=== PATIENT | male | born 1970 | race Caucasian/White ===

== ENCOUNTER 2019-12-08 13:03 | Emergency (ER) | payer SELFPAY ==
[2019-12-08 13:12] VITALS: BP 151/93; PULSE 100; RESP 16; TEMP 36.8; O2SAT 94; BMI 27.1
[2019-12-08 13:37] VITALS: BP 151/93; PULSE 100; RESP 16; TEMP 36.8; O2SAT 94; BMI 27.1
--- NOTE | 2019-12-08 13:51 | HMH.EDUTC ---
[facility] [place] Clinical Impression: Contact dermatitis and eczema Disposition: Home, Self-Care Condition on Discharge: Good Instructions: DI for Contact Dermatitis Additional Instructions: Avoid contact with the offending substance if you could identify it. Keep taking the oral benedryl as you have been. Don't start the oral steroids (dexmethazone pack) until tomorrow. Don't put the topical steroids (triamcinolone) on your face or your groin. Follow up with your regular doctor or here in a couple of days if you are not getting better. GO TO THE ER FOR ANY WORSENING SYMPTOMS OR CONCERNS Prescriptions: Permethrin [Elimite] 1 applicatio TP ONCE #1 bottle Transmission Status: Received by [facility] [id number] cephALEXin [Keflex 500mg Cap] 500 mg PO Q6H 10 Days #40 cap Transmission Status: Received by [facility] [id number] Famotidine [Pepcid 20mg Tablet] 20 mg PO BID 14 Days #28 tab Transmission Status: Received by [facility] [id number] predniSONE [Prednisone 20mg Tab] 20 mg PO BID 5 Days #10 tab Transmission Status: Received by [facility] [id number] Triamcinolone Acetonide 1 applicatio TP TIDP PRN 7 Days #1 tube PRN Reason: Itching Transmission Status: Received by [facility] # [id number] Referrals: Provider,Referral, MD [Primary Care Provider] - Time of Disposition: 14:03 Medical Decision Making - Medical Records Medical records reviewed: Yes: I reviewed the patient's medical records. - Rene Inquiry Pt receiving controlled substance: No Vital Signs: 12/08/19 13:12 12/08/19 13:37 12/08/19 14:13 Temperature 98.2 F 98.2 F 98.2 F Temperature Source Oral Oral Pulse Rate 100 H Pulse Rate [Right Brachial] 100 H 100 H Respiratory Rate 16 16 16 Blood Pressure 151/93 H Blood Pressure [Right Arm] 151/93 H 151/93 H Blood Pressure Mean [Right Arm] 112 112 Blood Pressure Source [Right Arm] Automatic Cuff Automatic Cuff Blood Pressure Position [Right Arm] Sitting Sitting 02 Sat by Pulse Oximetry 94 L 94 L Oxygen Delivery Method Room Air Room Air - Lab Data Lab Results 12/08/19 13:43: Strep Scn Rapid Clinic Negative Orders (Tests/Meds): ED MEDICATIONS Discontinued Medications Generic Name Dose Route Start Last Admin Trade Name Garrison PRN Reason Stop Dose Admin Methylprednisolone Sodium Succinate 125 mg 12/08/19 13:53 12/08/19 14:08 Solu-Medrol 125mg/2ml Vial IM 12/08/19 13:54 125 mg ONCE ONE Administration ORDERS Category Date Time Status Strep Screen Confirmation Stat Micro 12/08/19 13:43 [place] [facility] [place] - General Stated complaint: rash Time Seen by Provider: 12/08/19 13:20 Mode of Arrival: Ambulatory Source of Information: Patient Limitations: No Limitations Description of Symptoms (Recalled from Triage Doc. by RN): PATIENT C/O RASH TO BILATERAL FOREARMS, WRIST, ANKLES, AND AROUND WAIST HEENT Symptoms (Recalled from RN notes): No Resp Symptoms (Recalled from RN notes): No Skin Symptoms (Recalled from RN notes): Yes MS Symptoms (Recalled from RN notes): No Functional Status (Recalled from RN notes): WNL - History of Present Illness Provider Complaint: He c/o having a itchy rash on his body for the past 1 month. He has taken benedryl and had no relief. - Related Data Previous Rx's Medication Instructions Recorded Famotidine [Pepcid 20mg Tablet] 20 mg PO BID 14 Days #28 tab 12/08/19 Permethrin [Elimite] 1 applicatio TP ONCE #1 bottle 12/08/19 Triamcinolone Acetonide 1 applicatio TP TIDP PRN 7 Days #1 12/08/19 tube cephALEXin [Keflex 500mg Cap] 500 mg PO Q6H 10 Days #40 cap 12/08/19 predniSONE [Prednisone 20mg 20 mg PO BID 5 Days #10 tab 12/08/19 Tab] Allergies Allergy/AdvReac Type Severity Reaction Status Date / Time No Known Allergies Allergy Verified 12/08/19 13:40 - Worker's Comp Is this a Worker's Comp case?: No [facility] History - Hepatitis A Screen Drug use history?: No High risk sexual b
[2019-12-08 14:06] LABS: UTC Strep Screen (Rapid) Negative (Negative)
[2019-12-08 14:13] VITALS: BP 151/93; PULSE 100; RESP 16; TEMP 36.8; O2SAT 94
== END 2019-12-08 14:20 | disposition home or self-care (01) ==
LOC: ER 13:13 → UTC 13:15 → ER 13:15 → UTC 13:25
PROVIDERS: Emergency Provider Nurse Practitioner Family
DX: L25.9 Unspecified contact dermatitis, unspecified cause (principal); F17.210 Nicotine dependence, cigarettes, uncomplicated; Z90.09 Acquired absence of other part of head and neck
CPT/HCPCS: 87880; 96372; 99202

== ENCOUNTER 2021-03-19 12:36 | Emergency (ER) | payer SELFPAY ==
[2021-03-19 12:40] VITALS: BP 140/94; PULSE 104; RESP 20; TEMP 36.8; O2SAT 96; BMI 22.6
[2021-03-19 13:20] LABS: UTC Strep Screen (Rapid) Negative (Negative)
--- NOTE | 2021-03-19 13:33 | HMH.EDUTC ---
[facility] [place] Clinical Impression: Viral syndrome Sinusitis Qualifiers: Sinusitis location: unspecified location Chronicity: acute Recurrence: non-recurrent Qualified Code(s): J01.90 - Acute sinusitis, unspecified Disposition: Home, Self-Care Condition on Discharge: Good Instructions: DI for Sinusitis, Preventing the Spread of Coronavirus Discharge Instructions Additional Instructions: Drink plenty of fluids. Take tylenol or ibuprofen for pain or fever. Take the medications as directed. Follow up with your regular doctor. GO TO THE ER FOR ANY WORSENING SYMPTOMS Prescriptions: Albuterol Sulfate [Albuterol 0.083% 2.5mg/3mL neb] 2.5 mg IH Q6HP PRN #90 neb PRN Reason: Shortness Of Breath Transmission Status: Pending to [facility]/pharmacy #[id number] Albuterol Sulfate [Albuterol Sulfate Hfa] 2 puffs IH Q6HP PRN 30 Days #1 hfa.aer.ad PRN Reason: Shortness Of Breath Transmission Status: Pending to [facility]/pharmacy #[id number] guaiFENesin [Mucinex 600mg tablet] 1 - 2 tab PO BIDP PRN #30 tab.er.12h PRN Reason: Congestion Transmission Status: Received by [facility]/pharmacy #[id number] Promethazine HCl [Phenergan 25mg tab] 25 mg PO Q6H PRN #20 tab PRN Reason: Nausea And Vomiting Transmission Status: Received by [id number] Azithromycin [Z-Elian 250mg Tab*] 250 mg PO UD DOSE PK #6 tab Transmission Status: Received by [facility]/pharmacy #[id number] Referrals: Provider,Referral, [Primary Care Provider] - Forms: Work/School Release Time of Disposition: 13:57 Medical Decision Making - Medical Records Medical records reviewed: No: I reviewed the patient's medical records. - Rene Inquiry Pt receiving controlled substance: No Vital Signs: 03/19/21 12:40 03/19/21 13:54 Temperature 98.3 F 98.3 F Temperature Source Oral Pulse Rate 104 H Pulse Rate [Right Brachial] 104 H Respiratory Rate 20 20 Blood Pressure 140/94 H Blood Pressure [Right Arm] 140/94 H Blood Pressure Mean [Right Arm] 109 Blood Pressure Source [Right Arm] Automatic Cuff Blood Pressure Position [Right Arm] Sitting 02 Sat by Pulse Oximetry 96 Oxygen Delivery Method Room Air - Lab Data Lab results reviewed: Yes: I reviewed the patient's lab results. Lab Results 03/19/21 13:01: Strep Scn Rapid Clinic Negative Orders (Tests/Meds): ORDERS Category Date Time Status Covid-19 Nasal PCR ([facility]) Routine Lab 03/19/21 13:40 Received Strep Screen Confirmation Stat Micro 03/19/21 13:01 Received [facility] UTC HPI - General Stated complaint: congestion, cough, body aches, fever Time Seen by Provider: 03/19/21 12:40 Mode of Arrival: Ambulatory Source of Information: Patient Limitations: No Limitations Description of Symptoms (Recalled from Triage Doc. by RN): PATIENT C/O PRODUCTIVE COUGH, CHILLS/SWEATS, ABDOMINAL PAIN, VOMITING, AND DIARRHEA HEENT Symptoms (Recalled from RN notes): No Resp Symptoms (Recalled from RN notes): Yes Skin Symptoms (Recalled from RN notes): No MS Symptoms (Recalled from RN notes): No Functional Status (Recalled from RN notes): WNL - History of Present Illness Provider Complaint: He states that for the past 2 days he has been getting more congested in his sinuses and chest. He has had lots of post nasal drainage. The drainage has made him nauseated at times. He has vomited multiple times. He has some diarrhea also. He denies any fever/chills/body aches. - Related Data Home Medications Medication Instructions Recorded Confirmed Fexofenadine HCl [Xochilt 180 mg PO DAILY 03/19/21 03/19/21 Allergy] Previous Rx's Medication Instructions Recorded Albuterol Sulfate [Albuterol 2.5 mg IH Q6HP PRN #90 neb 03/19/21 0.083% 2.5mg/3mL neb] Albuterol Sulfate [Albuterol 2 puffs IH Q6HP PRN 30 Days #1 03/19/21 Sulfate Hfa] hfa.aer.ad Azithromycin [Z-Elian 250mg Tab*] 250 mg PO UD DOSE PK #6 tab 03/19/21 Promethazine HCl [Phenergan 25mg 25 mg PO Q6H PRN #20 tab 03/19/21 tab] guaiFENesin [Mucinex
[2021-03-19 13:54] VITALS: BP 140/94; PULSE 104; RESP 20; TEMP 36.8; O2SAT 96
== END 2021-03-19 14:04 | disposition home or self-care (01) ==
PROVIDERS: Emergency Provider Nurse Practitioner Family
DX: J01.90 Acute sinusitis, unspecified (principal); B34.9 Viral infection, unspecified; F17.210 Nicotine dependence, cigarettes, uncomplicated; Z20.822 Contact with and (suspected) exposure to COVID-19
CPT/HCPCS: 87880; 99203; G0463; U0003

== ENCOUNTER 2021-03-22 14:47 | Emergency (ER) | payer SELFPAY ==
[2021-03-22 14:48] VITALS: BP 134/98; PULSE 118; RESP 20; TEMP 36.9; O2SAT 98; BMI 22.5
--- NOTE | 2021-03-22 14:49 | HMH.EDABDPAI ---
ED Disposition Clinical Impression: COPD exacerbation Gastritis due to alcohol without hemorrhage Qualifiers: Chronicity: acute Qualified Code(s): K29.20 - Alcoholic gastritis without bleeding Disposition: Home, Self-Care Condition on Discharge: Fair Instructions: DI for Acute Abdominal Pain Additional Instructions: Avoid drinking alcohol. Stick to a clear liquid diet for the next day or 2. Slowly advance your diet to solids. Return to the emergency department if you feel worse in any way. Follow-up with your primary care physician if you do not feel better within the next 3 to 4 days. Prescriptions: Metoclopramide HCl [Reglan 10mg Tab] 10 mg PO Q6H PRN #20 tab PRN Reason: Vomiting Transmission Status: [id number] Referrals: Provider,Referral, [Primary Care Provider] - - Critical Care Critical Care Time: No Attestation: On , the high probability of a clinically significant, sudden or life threatening deterioration of the following system(s) required my full and direct attention, intervention and personal management. The time I documented below is in addition to time spent performing reported procedures but includes the following listed in this critical care notation. Medical Decision Making - Medical Records Medical records reviewed: Yes: I reviewed the patient's medical records. - Rene Inquiry Pt receiving controlled substance: No Vital Signs: 03/22/21 14:48 03/22/21 15:59 Temperature 98.4 F Temperature Source Oral Pulse Rate 80 Pulse Rate [Radial] 118 H Respiratory Rate 20 Blood Pressure 119/98 H Blood Pressure [Right Arm] 134/98 H Blood Pressure Mean [Right Arm] 110 Blood Pressure Source Automatic Cuff Blood Pressure Position Sitting Blood Pressure Position [Right Arm] Sitting 02 Sat by Pulse Oximetry 98 96 Oxygen Delivery Method Room Air Room Air - Lab Data Lab results reviewed: Yes: I reviewed the patient's lab results. Lab Results 03/22/21 14:57: WBC 12.2 H, RBC 4.82, Hgb 16.2, Hct 47.0, MCV 97.5 H, MCH 33.7 H, MCHC 34.6, RDW 13.3, Plt Count 337, MPV 7.3 L, Neut % (Auto) 68.1, Lymph % (Auto) 20.3, [place] % (Auto) 9.0, Eos % (Auto) 1.9, Baso % (Auto) 0.8, Neut # (Auto) 8.3 H, Lymph # (Auto) 2.5, [place] # (Auto) 1.1 H, Eos # (Auto) 0.2, Baso # (Auto) 0.1 03/22/21 14:57: Sodium 128 L, Potassium 3.5, Chloride 92 L, Carbon Dioxide 27, Anion Gap 12.5, BUN 3 L, Creatinine 0.60 L, Estimated Creat Clear 160, Estimated GFR 144, Est GFR ( Amer) 174, Glucose 148 H, Calcium 9.5, Total Bilirubin 0.7, AST 26, ALT 17, Alkaline Phosphatase 60, Total Protein 7.4, Albumin 4.6, Globulin 2.8, Albumin/Globulin Ratio 1.6, Lipase 72 03/22/21 15:15: Urine Color Yellow, Urine Appearance Clear, Urine pH 6.5, Ur Specific [place] <= 1.005, Urine Protein Negative, Urine Glucose (UA) Negative, Urine Ketones Negative, Urine Blood Negative, Urine Nitrate Negative, Urine Bilirubin Negative, Urine Urobilinogen 1.0, Ur Leukocyte Esterase Negative, Urine RBC None, Urine WBC None, Ur Squamous Epith Cells Occasional, Urine Bacteria None Result diagrams: 03/22/21 14:57 03/22/21 14:57 Orders (Tests/Meds): ED MEDICATIONS Discontinued Medications Generic Name Dose Route Start Last Admin Trade Name Dominicq PRN Reason Stop Dose Admin Albuterol Sulfate 2.5 mg 03/22/21 15:07 03/22/21 15:10 Albuterol 0.083% 2.5 Mg/3 Ml Neb IH 03/22/21 15:08 2.5 mg ONCE ONE Administration Sodium Chloride 1,000 mls @ 999 mls/hr 03/22/21 15:00 03/22/21 15:02 Sod Chlor 0.9% 1000ml Bag IV 03/22/21 16:00 999 mls/hr .Q1H1M NASIMA Administration Metoclopramide HCl 10 mg 03/22/21 15:44 03/22/21 15:50 Metoclopramide Hcl 10mg/2ml Vial IVP 03/22/21 15:45 10 mg ONCE ONE Administration Ondansetron HCl 4 mg 03/22/21 14:59 03/22/21 15:02 Ondansetron 4mg/2ml Vial IV 03/22/21 15:00 4 mg ONCE ONE Administration - Reevaluation(s) Time: 15:46 Reevaluation #1: On r
[2021-03-22 15:23] LABS: Microscopic, Urine URINE MICROSCOPIC (MICROSCOPIC)
[2021-03-22 15:25] LABS: Appearance,Urine CLEAR (Clear); Bilirubin,Urine Negative (Negative); Blood, Urine Negative (Negative); Color,Urine YELLOW (Yellow); Glucose,Urine (UA) Negative (Negative); Ketones,Urine Negative (Negative); Leukocyte Esterase,Urine Negative (Negative); Nitrate,Urine Negative (Negative); PH,Urine 6.5 (5.0-8.5); Protein,Urine Negative (Negative); Specific Gravity, Urine <= 1.005 (1.005-1.030)
[2021-03-22 15:26] LABS: Basophils # 0.1 K/mm3 (0-0.2); Basophils % 0.8 % (0.1-2.0); Eosinophils # 0.2 K/mm3 (0.0-0.4); Eosinophils % 1.9 % (0.1-12.0); Hemoglobin 16.2 g/dL (14.1-18.0); Lymphocytes # 2.5 K/mm3 (0.7-4.5); Lymphocytes % 20.3 % (10-50); Mean Corpuscular HGB Conc 34.6 g/dL (31.8-35.4); Mean Corpuscular Hemoglobin 33.7 pg (27.0-31.2); Mean Corpuscular Volume 97.5 fl (80-94); Mean Platelet Volume 7.3 fl (7.4-10.4); Monocytes # 1.1 K/mm3 (0.1-1.0); Neutrophils # 8.3 K/mm3 (1.8-7.8); Neutrophils % 68.1 % (37.0-80.0); Platelet Count 337 K/mm3 (142-424); Red Blood Count 4.82 M/mm3 (4.60-6.20); Red Cell Distribution Width 13.3 % (11.5-17.5); White Blood Count 12.2 K/mm3 (4.8-10.8)
[2021-03-22 15:27] LABS: Chloride 92 mmol/L (98-107)
[2021-03-22 15:28] LABS: Potassium 3.5 mmoL/L (3.5-5.1); Sodium 128 mmol/L (136-145)
[2021-03-22 15:31] LABS: Alanine Aminotransferase 17 U/L (12-78); Albumin Level 4.6 g/dl (3.5-5.0); Albumin/Globulin Ratio 1.6 (1.1-1.8); Alkaline Phosphatase 60 U/L (38-126); Anion Gap 12.5 mEq/L (5-15); Aspartate Amino Transferase 26 U/L (17-59); Bilirubin,Total 0.7 mg/dl (0.2-1.3); Blood Urea Nitrogen 3 mg/dl (9-20); Calcium 9.5 mg/dl (8.4-10.2); Carbon Dioxide 27 mmol/L (22.0-30.0); Creatinine Clearance Estimated 160 mL/min (50-200); Estimated Glomerular Filt Rate 144 ml/min (>60); GFR (African American) 174 ML/MIN (>60); Globulin 2.8 g/dL (1.3-3.2); Glucose 148 mg/dl (74-100); Lipase 72 U/L (23-300); Total Protein,Serum 7.4 g/dl (6.3-8.2)
[2021-03-22 15:38] LABS: Squamous Epithelial Cell,Urine Occasional #/hpf (0-5)
[2021-03-22 15:59] VITALS: BP 119/98; PULSE 80; O2SAT 96
[2021-03-22 16:24] VITALS: BP 135/71; PULSE 92; RESP 16; TEMP 36.6; O2SAT 96
== END 2021-03-22 16:25 | disposition home or self-care (01) ==
PROVIDERS: Emergency Provider Emergency Medicine
DX: K29.20 Alcoholic gastritis without bleeding (principal); F17.210 Nicotine dependence, cigarettes, uncomplicated; J44.1 Chronic obstructive pulmonary disease with (acute) exacerbation
CPT/HCPCS: 80053; 81001; 83690; 85025; 96365; 96375; 99282; J2405

== ENCOUNTER 2021-08-07 12:32 | Emergency (ER) | payer SELFPAY ==
[2021-08-07 13:43] VITALS: BP 154/109; PULSE 92; RESP 18; TEMP 36.5; O2SAT 95; BMI 24.4
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
[2021-08-07 14:47] VITALS: BP 154/109; PULSE 92; RESP 18; TEMP 36.5
== END 2021-08-07 14:48 | disposition home or self-care (01) ==
PROVIDERS: Emergency Provider Nurse Practitioner Family
DX: J01.90 Acute sinusitis, unspecified (principal); R09.81 Nasal congestion
CPT/HCPCS: 96372; 99202; G0463

== ENCOUNTER 2022-08-10 11:06 | Emergency (ER) | payer OTHER, SELFPAY ==
--- NOTE | 2022-08-10 11:56 | EXP.UTC ---
Discharge Plan Disposition Patient Disposition: Home, Self-Care Condition: Good Prescriptions Prescriptions: New azithromycin [Zithromax] 250 mg tablet 250 mg PO UD DOSE PK Qty: 6 0RF Rx Instructions: Take two (2) tablets today, then one (1) tablet days #2 thru #5 benzonatate [benzonatate] 100 mg capsule 100 mg PO TIDP PRN (Reason: Cough) Qty: 30 0RF methylprednisolone 4 mg Tablets,Dose Pack 4 mg PO DIRECTED Qty: 21 0RF No Action azithromycin 250 MG tablet 250 mg PO UD DOSE PK Qty: 6 0RF Rx Instructions: Take two (2) tablets today, then one (1) tablet days #2 thru #5 methylprednisolone 4 MG tablets,dose pack 4 mg PO DIRECTED 6 Days Qty: 21 0RF albuterol sulfate 8.5 GM HFA aerosol inhaler 2 puffs IH Q6HP PRN (Reason: Shortness Of Breath) 30 Days Qty: 1 5RF guaifenesin 600 MG tablet extended release 12hr 1 - 2 tab PO BIDP PRN (Reason: Congestion) Qty: 30 0RF fexofenadine 180 MG tablet 180 mg PO DAILY azithromycin 250 MG tablet 250 mg PO UD DOSE PK Qty: 6 0RF Rx Instructions: Take two (2) tablets today, then one (1) tablet days #2 thru #5 promethazine 25 MG tablet 25 mg PO Q6H PRN (Reason: Nausea And Vomiting) Qty: 20 0RF guaifenesin 600 MG tablet extended release 12hr 1 - 2 tab PO BIDP PRN (Reason: Congestion) Qty: 30 0RF albuterol sulfate 8.5 GM HFA aerosol inhaler 2 puffs IH Q6HP PRN (Reason: Shortness Of Breath) 30 Days Qty: 1 5RF albuterol sulfate 2.5 MG/NEB solution for nebulization 2.5 mg IH Q6HP PRN (Reason: Shortness Of Breath) Qty: 90 2RF metoclopramide HCl 10 MG tablet 10 mg PO Q6H PRN (Reason: Vomiting) Qty: 20 0RF Referrals Follow up/Referrals: Sarah Calle [Primary Care Provider] - See instructions Clinical Impressions Clinical Impression: Bronchitis, Acute viral syndrome Instructions Patient Instructions: DI for Acute Bronchitis, DI for Viral Syndrome Discharge ED Provider: Adria Ar[facility] HPI General Stated complaint: SOA, Ear pain, cough, chest congestion sore throat Time Seen by Provider: 08/10/22 11:56 History of Present Illness Provider Complaint: He states that for the past 4 days he has had cough, congestion, malaise and body aches. Related Data Home Medications Medication Instructions Recorded Confirmed fexofenadine 180 mg tablet 180 mg PO DAILY Allergy symptoms 03/19/21 03/19/21 Previous Rx's Medication Instructions Recorded albuterol sulfate 2.5 mg/3 mL 2.5 mg (3 mL) IH Q6HP PRN 03/19/21 (0.083 %) solution for nebulization Shortness Of Breath #90 neb albuterol sulfate 90 mcg/actuation 2 puffs IH Q6HP PRN Shortness Of 03/19/21 aerosol inhaler Breath 30 days ##1 azithromycin 250 mg tablet 250 mg PO UD DOSE PK #6 tabs 03/19/21 guaifenesin 600 mg tablet, 1 - 2 tab PO BIDP PRN Congestion 03/19/21 extended release 12 hr ##30 promethazine 25 mg tablet 25 mg PO Q6H PRN Nausea And 03/19/21 Vomiting #20 tabs metoclopramide HCl 10 mg tablet 10 mg PO Q6H PRN Vomiting #20 tabs 03/22/21 albuterol sulfate 90 mcg/actuation 2 puffs IH Q6HP PRN Shortness Of 08/07/21 aerosol inhaler Breath 30 days #1 ea azithromycin 250 mg tablet 250 mg PO UD DOSE PK #6 tabs 08/07/21 guaifenesin 600 mg tablet, 1 - 2 tab PO BIDP PRN Congestion 08/07/21 extended release 12 hr #30 tabs methylprednisolone 4 mg tablets in 4 mg PO DIRECTED 6 days #21 08/07/21 a dose pack packets azithromycin 250 mg tablet 250 mg PO UD DOSE PK #6 tabs 08/10/22 (Zithromax) benzonatate 100 mg capsule 100 mg PO TIDP PRN Cough #30 caps 08/10/22 methylprednisolone 4 mg tablets in 4 mg PO DIRECTED #21 tabs 08/10/22 a dose pack Allergies Allergy/AdvReac Type Severity Reaction Status Date / Time No Known Allergies Allergy Verified 08/10/22 12:03 [facility] Disclaimer: The information contained in this section may have been updated after the patient was seen, as this information can be updated by other u
[2022-08-10 12:01] VITALS: BP 149/90; PULSE 78; RESP 16; TEMP 36.8; O2SAT 98; BMI 28.7
[2022-08-10 12:01] LABS: UTC Influenza A Antigen Negative (Negative); UTC Influenza B Antigen Negative (Negative)
[2022-08-10 13:01] VITALS: BP 149/90; PULSE 78; RESP 16; TEMP 36.8
[2022-08-10 13:56] LABS: Adenovirus,PCR Not Detected (NotDetected); Bordetella Pertussis Not Detected (NotDetected); Chlamydophila Pneumoniae, PCR Not Detected (NotDetected); Coronavirus 19, PCR Not Detected (NotDetected); Coronavirus 229E Not Detected (NotDetected); Coronavirus NL63 Not Detected (NotDetected); Coronavirus OC43 Not Detected (NotDetected); Coronovirus HKU1,PCR Not Detected (NotDetected); Human Metapneumovirus Not Detected (NotDetected); Influenza A, PCR Not Detected (NotDetected); Influenza AH1, 2009 Not Detected (NotDetected); Influenza AH1, PCR Not Detected (NotDetected); Influenza AH3,PCR Not Detected (NotDetected); Influenza B, PCR Not Detected (NotDetected); Mycoplasma Pneumoniae, PCR Not Detected (NotDetected); Parainfluenza 1, PCR Not Detected (NotDetected); Parainfluenza 2, PCR Not Detected (NotDetected); Parainfluenza 3, PCR Not Detected (NotDetected); Parainfluenza 4, PCR Not Detected (NotDetected); Respiratory Syncytial Virus Not Detected (NotDetected); Rhinovirus/Enterovirus Not Detected (NotDetected)
== END 2022-08-10 13:06 | disposition home or self-care (01) ==
PROVIDERS: Emergency Provider Nurse Practitioner Family; PCP Family Medicine
DX: J40 Bronchitis, not specified as acute or chronic (principal); B34.9 Viral infection, unspecified
CPT/HCPCS: 87581; 87632; 87798; 87804; 99212; C9803; G0463; U0003; U0005